=== PATIENT | female | born 1945 | race Caucasian/White ===

== ENCOUNTER → 2018-05-19 | Outpatient (REF) | payer MEDICARE ==
[~2018-05-19] MED LIST: CAFFEINE PO; CELEBREX100 M1 PO; CELEBREX200 MG OR; CLARITIN-D1 TA1 OR; ESTRACE VAG0.1 MG/GM VA; KEFLEX500 MG PO; LEVAQUIN500 MG PO; Levaquin PO; MEDDOSEPAK PO; METROGEL VAG0.75 % VA; MULTI VITAMN OR; OMEGA 3340 MG OR; OMEGA 3550 MG OR; PRAVASTATIN20 MG PO; PRILOSEC20 MG PO; PRILOSEC20 MG/CAP PO; PYRIDIUM100 MG OR; TESSALON200 MG PO; TORADOL PO; TYLENOL PO; TYLENOL325 MG OR; XANAX0.25 MG PO; [UNRECOGNIZED DRUG - OTHER] PO; [UNRECOGNIZED DRUG - SUPPLY]
[2018-05-19 08:05] LABS: HEMATOCRIT 44.4 % (37.0-47.0); HEMOGLOBIN 14.4 g/dl (12.0-16.0); MEAN CELL VOLUME 93.9 fL CALC (80.0-100.0); MEAN CORPUSCULAR HGB 30.4 pG CALC (26.0-32.0); MEAN CORPUSCULAR HGB CONC 32.4 g/L CALC (32.0-36.0); RED BLOOD COUNT 4.73 mill/uL (4.20-5.60); RED CELL DISTRI WIDTH 13.9 % (11.5-15.5)
[2018-05-19 08:22] LABS: ALBUMIN 3.9 g/dL (3.2-5.0); ALKALINE PHOSPHATASE 74 u/l (38-126); ANION GAP 13 (6-22 (CALC)); BILIRUBIN, TOTAL 0.5 mg/dL (0.0-1.4); BUN 13 mg/dL (8-23); BUN/CREATININE RATIO 20 (12-20 (CALC)); CALCULATED LDLCHOLESTEROL 96 mg/dL (62-129 (CALC)); CARBON DIOXIDE 27 mmol/l (22-30); CHLORIDE 105 mmol/l (95-108); CHOLESTEROL HDL RATIO 4.2 (<4.4 (CALC)); CREATININE 0.7 mg/dL (0.5-1.0); GFR > 60 ML/MIN (>=60 (CALC)); GFR FOR AFR.AMER. > 60 ML/MIN (>=60 (CALC)); HDL CHOLESTEROL 42 mg/dL (>=40); SGOT/AST 24 u/l (9-36); SODIUM 141 mmol/l (137-146); TOTAL CHOLESTEROL 174 mg/dl (0-199); TOTAL PROTEIN 6.6 g/dL (6.3-8.2); TOTAL TRIGLYCERIDES 185 mg/dl (30-149); VLDL CHOLESTROL 37 mg/dl (0-48 (CALC))
[2018-05-19 08:49] LABS: TSH, 3RD GENERATION 0.69 uIU/mL (0.47 - 4.68)
== END | disposition home or self-care (01) ==
LOC: LAB 07:19
PROVIDERS: ATTEND Nurse Practitioner
DX: I10 Essential (primary) hypertension (principal)

== ENCOUNTER 2019-03-17 10:12 | Emergency (ER) | payer MEDICARE ==
[~2019-03-17] VITALS: Ht 170.2 cm; Wt 87.3 kg
[2019-03-17 11:23] LABS: HEMOGLOBIN 15.1 g/dl (12.0-16.0); IMMATURE GRANULOCYTES 0.2 % (0.0-5.0); MEAN CORPUSCULAR HGB 30.2 pG CALC (26.0-32.0); MEAN CORPUSCULAR HGB CONC 32.8 g/L CALC (32.0-36.0); NEUT# 2.82 thou/uL (2.00-7.15); RED CELL DISTRI WIDTH 13.7 % (11.5-15.5)
[2019-03-17 11:36] LABS: ANION GAP 16 (6-22 (CALC)); BUN 12 mg/dL (8-23); BUN/CREATININE RATIO 22 (12-20 (CALC)); CARBON DIOXIDE 24 mmol/l (22-30); CHLORIDE 101 mmol/l (95-108); CREATININE 0.5 mg/dL (0.5-1.0); GFR > 60 ML/MIN (>=60 (CALC)); GFR FOR AFR.AMER. > 60 ML/MIN (>=60 (CALC)); POTASSIUM 3.5 mmol/l (3.5-5.1); SODIUM 137 mmol/l (137-146)
[2019-03-17 12:23] VITALS: BP 140/76
[2019-03-17] MEDS ORDERED: OMNI-PAC300 MG PO (12:30)
== END 2019-03-17 12:38 | disposition home or self-care (01) ==
LOC: ED 10:12
PROVIDERS: Family Medicine
DX: J06.9 Acute upper respiratory infection, unspecified (principal)